=== PATIENT | female | born 1985 | race Caucasian/White ===

== ENCOUNTER 2017-06-18 07:05 | Inpatient (IN) | payer BC ==
[2017-06-18] VITALS (22 sets, daily range): BP systolic 102–142; BP diastolic 53–78; PULSE 69–101; TEMP 97.8–98.8
[~2017-06-18] VITALS: Ht 177.8 cm; Wt 80.9 kg
[~2017-06-18 07:05] MED LIST: MOTRIN 600600 MG/TAB PO; PRENATAL1 TA7 PO
[2017-06-18 08:23] LABS: BASO % 0.2 % (0.0-2.0); EOS # 0.2 (0.0-0.7); EOS % 1.4 % (0-4.0); GRAN # 10.2 (1.4-6.5); GRAN % 75.1 % (42.2-75.2); LYMPH # 2.3 (1.2-3.4); LYMPH % 16.6 % (20.0-51.0); MEAN CELL VOLUME 87 fl (80.0-100.0); MEAN CORPUSCULAR HEMOGLOBIN 30 pg (27.0-31.0); MEAN CORPUSCULAR HGB CONC 34 g/dl (33.0-37.0); MEAN PLATELET VOLUME 11.9 fl (7.4-10.4); MONO # 0.8 (0.1-0.6); MONO % 5.7 % (1.7-9.3); PLATELET COUNT 250 K/mm3 (130-400); RED BLOOD COUNT 4.07 M/mm3 (4.10-5.30); REDCELL DISTRIBUTION WIDTH-CV 13.8 % (11.5-14.5)
[2017-06-18 08:27] LABS: HEMATOCRIT 35.4 % (37.0-47.0)
[2017-06-19 02:00] VITALS: BP 99/59; PULSE 76; TEMP 97.5
[2017-06-19 09:30] VITALS: BP 110/40; PULSE 69; TEMP 98.1
== END 2017-06-19 16:10 | disposition home or self-care (01) | DRG 775 ==
LOC: LDRO 07:05 → LDR 07:10 → OB 07:10 → LDRO 06-21 11:15
PROVIDERS: Obstetrics & Gynecology
PROC: 10E0XZZ Delivery of Products of Conception, External Approach (ICD-10-PCS; principal; 2017-06-18)
PROC: 0W8NXZZ Division of Female Perineum, External Approach (ICD-10-PCS; 2017-06-18)
DX: O69.81X0 Labor and delivery complicated by cord around neck, without compression, not applicable or unspecified (principal); Z3A.39 39 weeks gestation of pregnancy; Z37.0 Single live birth
CPT/HCPCS: J2400; J2590; J3010; J7120

== ENCOUNTER 2019-10-17 23:00 | Inpatient (IN) | payer BC ==
[~2019-10-17] VITALS: Ht 177.8 cm; Wt 83.2 kg
--- NOTE | 2019-10-17 22:50 | NUR ---
225- PT PRESENTS TO LDR COMPLAINING OF CONTRACTIONS. AMBULATORY TO ROOM LR4, CHANGED INTO GOWN. 2254- EFM X2 APPLIED. PT REPORTS CONTRACTIONS WITH SOME PINK BLOODY SHOW. DENIES LEAKING AMNIOTIC FLUID AND STATE SHE IS FEELING BABY MOVE. PLAN OF CARE FOR LABOR CHECK DISCUSSED AND QUESTIONS ANSWERED. 2257- SVE BY THIS NURSE 4-/-3. PT REPORTS HER CONTRACTIONS ARE NOTICEABLE BUT NOT TOO INTENSE. 2308- DR YATES CALLED AND UPDATED ON PT HISTORY, COMPLAINT, SVE, STRIP INTERPRETATION. ORDERS FOR ADMISSION. 2324- PT UPDATED ON PLAN OF CARE, ADMISSION HISTORY AND ASSESSMENT COMPLETE.
[2019-10-17 23:30] VITALS: BP 123/59; PULSE 74; TEMP 98.3
[2019-10-17 23:56] LABS: BASO % 0.2 % (0.0-2.0); EOS # 0.2 (0.0-0.7); EOS % 1.4 % (0-4.0); GRAN # 11.6 (1.4-6.5); HEMATOCRIT 35.1 % (37.0-47.0); HEMOGLOBIN 11.6 g/dl (12.5-16.0); LYMPH # 2.1 (1.2-3.4); LYMPH % 13.8 % (20.0-51.0); MEAN CELL VOLUME 86 fl (80.0-100.0); MEAN CORPUSCULAR HEMOGLOBIN 29 pg (27.0-31.0); MEAN CORPUSCULAR HGB CONC 33 g/dl (33.0-37.0); MEAN PLATELET VOLUME 11.9 fl (7.4-10.4); MONO # 0.9 (0.1-0.6); MONO % 6.1 % (1.7-9.3); PLATELET COUNT 241 K/mm3 (130-400); RED BLOOD COUNT 4.07 M/mm3 (4.10-5.30); REDCELL DISTRIBUTION WIDTH-CV 14.1 % (11.5-14.5)
[2019-10-18] VITALS (22 sets, daily range): BP systolic 71–121; BP diastolic 52–81; PULSE 64–81; TEMP 97.8–98.8
--- NOTE | 2019-10-18 01:30 | NUR ---
0113- PT UP TO BATHROOM. 0117- DECELERATION INTO THE 90'S AFTER RETURNING FROM THE BATHROOM. 0120- SVE OF 7-8/80/-2 WITH A BULGING BAG.
--- NOTE | 2019-10-18 01:48 | NUR ---
LATE DECELERATION IN TO THE 60'S, SVE REMAINS 7-8/80/-2, POSSIBLE CORD PALPATED THROUGH BAG OF WATER. DR. YATES ON UNIT FOR ANOTHER DELIVERY, WILL NOTIFY OF CURRENT SVE.
--- NOTE | 2019-10-18 03:00 | NUR ---
0230-DR YATES AT DESK FOLLOWING ANOTHER DELIVERY, NOTIFIED OF POSSIBLE CORD PALPATED DURING LAST SVE AND PT HX WITH THIS . 0236- THIS NURSE IN ROOM, PT REQUEST TO USE BATHROOM, DR YATES OKAY WITH PT GETTING UP. NICKEL SIZED CLOT NOTED ON CHUX PAD, SHOWN TO DR. YATES. 0242- PT BACK IN BED, DR YATES IN ROOM TO EVALUATE. 0243- DR. YATES PERFORMS SVE, UNCHANGED. NOTIFIES PT OF CONCERNS OF CORD BEING PALPATED BY THIS NURSE AND HIMSELF. 0244- BEDSIDE SONO CONFIRMS CORD AT [facility], DR YATES DISCUSSES NEED FOR C/S AT THIS TIME DUE TO RISK OF CORD PROLAPSE IF SROM OCCURS. PT AND SPOUSE VERBALIZE UNDERSTANDING AND CONSENT FOR C\S. 0250- ABDOMINAL SCRUB PERFORMED. 0300- PT OFF MONITORS, TO OR.
--- NOTE | 2019-10-18 10:15 | NUR ---
Ambulates to the bathroom. Boykin catheter out, jose daniel-care given. Clean gown on. Ambulates back to bed. Denies any other needs at this time.
[2019-10-19 08:45] VITALS: BP 124/73; PULSE 89; TEMP 97.8
--- NOTE | 2019-10-19 08:45 | NUR ---
Rests in bed, eating breakfast. Denies any pain at this time or discomfort at this time.
--- NOTE | 2019-10-19 13:47 | NUR ---
stopped by but nothing needed at this time.
[2019-10-19 16:00] VITALS: BP 105/50; PULSE 71; TEMP 98.4
--- NOTE | 2019-10-19 18:14 | NUR ---
Rests in chair holding baby. Ibuprofen 600 mg given as ordered.
[2019-10-19 22:00] VITALS: BP 95/53; PULSE 71; TEMP 98.3
[2019-10-20 07:05] VITALS: BP 101/57; PULSE 63; TEMP 98
[2019-10-20] MEDS ORDERED: IBU600 MG PO (11:08)
== END 2019-10-20 13:00 | disposition home or self-care (01) | DRG 787 ==
LOC: LDRO 23:00 → LDR 23:01 → LDRO 23:08 → LDR 23:09 → LDRO 10-18 01:03 → OB 10-18 01:04 → LDRO 10-18 01:04 → LDR 10-18 01:04 → OB 10-18 05:00 → LDR 10-18 05:00 → OB 10-20 13:00
PROVIDERS: Obstetrics & Gynecology; ADMIT Obstetrics & Gynecology
PROC: 10D00Z1 Extraction of Products of Conception, Low, Open Approach (ICD-10-PCS; principal; 2019-10-18)
DX: O43.129 Velamentous insertion of umbilical cord, unspecified trimester (principal); O44.43 Low lying placenta NOS or without hemorrhage, third trimester; O69.4XX0 Labor and delivery complicated by vasa previa, not applicable or unspecified; O69.1XX0 Labor and delivery complicated by cord around neck, with compression, not applicable or unspecified; O99.02 Anemia complicating childbirth; D64.9 Anemia, unspecified; Z3A.39 39 weeks gestation of pregnancy; Z37.0 Single live birth
CPT/HCPCS: OP; J0690; J1885; J2370; J2405; J2590; J7120